=== PATIENT | female | born 1980 | race Caucasian/White ===

== ENCOUNTER 2021-09-25 15:33 | Emergency (ER) | payer MEDICAID, SELFPAY ==
[2021-09-25 15:50] VITALS: BP 159/98; PULSE 107; RESP 22; O2SAT 97; BMI 36.2
--- NOTE | 2021-09-25 15:59 | XRR_ITS ---
PROCEDURE INFORMATION: Exam: XR Left Ankle Exam date and time: 09/25/2021 4:00 PM Age: 41 years old Clinical indication: Injury or trauma; Fall; Fracture, pathological; Fibula and tibia; Right; Bilateral; Displaced; Additional info: Possible ankle fracture TECHNIQUE: Imaging protocol: XR Left ankle. Views: 3 or more views. COMPARISON: No relevant prior studies available. FINDINGS: Bones/joints: There is an oblique distal fibular fracture and medial malleolar fracture with lateral displacement and disruption of the ankle mortise resulting in slight valgus deformity. There is also probable widening of the distal tibia fibular distance and syndesmotic rupture may be present. Correlation with proximal tibia fibular exam should also be considered to exclude proximal fibular injury. Soft tissues: Normal. Other findings: Three views obtained in a cast. XR/XR ankle LT min 3V* [id number] IMPRESSION: Distal fibula and medial malleolar fracture with disruption of the ankle mortise as described. Additional views of the proximal tibia/fibula may also be considered. See discussion above.
--- NOTE | 2021-09-25 16:01 | ED_ITS ---
HPI - Extremity Problem General: Chief complaint: Extremity Injury, Lower Stated complaint: ROLLED ANKLE Time Seen by Provider: 09/25/21 16:00 Source: patient Mode of arrival: EMS Limitations: no limitations History of Present Illness: 41-year-old female presents emergency room via EMS she fell earlier today at home tripped over a toy felt a popping sensation in her right ankle. She has been able to unable to get up could not get a hold of anyone to help her eventually she called EMS and was brought to the emergency room. She denies striking her head no other injuries no loss of consciousness. MD Complaint: joint pain Onset (ago): hour(s) Pain Consistency: constant Location: right Radiation: none Relieving factors: immobilization and rest Exacerbating factors: range of motion and palpation Associated symptoms: Deny chest pain, fever(s), myalgias, rash or short of breath Review of Systems Const: Denies: fever(s) or chills ENMT: Denies: throat pain, ear or mastoid pain, nasal discharge or nasal congestion Card: Denies: chest pain, palpitations or irregular heart rhythm Resp: Denies: dyspnea, productive cough or non-productive cough GI: Denies: abdominal pain, nausea, vomiting, hematemesis, coffee ground emesis, diarrhea, constipation or bloating : Denies: flank pain, difficulty voiding, dysuria, urinary frequency or urinary urgency Skin/Breast: Denies: rash or pruritus PFS ED PFSH: Medical History (Updated 09/25/21 @ 16:11 by Bonilla Adams DO) No pertinent past medical history Surgical History (Updated 09/25/21 @ 16:10 by Bonilla Adams DO) No pertinent past surgical history Physical Exam Const: COMMON NORMALS: no acute distress GENERAL APPEARANCE: cooperative and comfortable ORIENTATION/CONSCIOUSNESS: Yes awake, Yes oriented to person, Yes oriented to place and Yes oriented to time HENMT: COMMON NORMALS: normocephalic, atraumatic and hearing grossly normal bilaterally HEAD & SCALP: normocephalic and atraumatic Neck/C-Spine: COMMON NORMALS: full ROM, no lymphadenopathy and no JVD Resp: COMMON NORMALS: normal respiratory effort, No retractions, No use of accessory muscles and clear to auscultation bilaterally AUSCULTATION: clear to auscultation bilaterally Cardio: COMMON NORMALS: no JVD, regular rate, regular rhythm and No murmurs present (Cardio) RATE: regular rate RHYTHM: regular rhythm GI: COMMON NORMALS: Soft to palpation and No hepatosplenomegaly present AUSCULTATION: Yes normoactive bowel sounds PALPATION: Yes Soft to palpation, No Tenderness to palpation present (GI), No Guarding due to palpation present (GI) and Yes No hepatosplenomegaly present Extremity: COMMON NORMALS: capillary refill normal and no calf tenderness OTHER: Right ankle is splinted. There is moderate edema and deformity consistent with fracture confirmed on x-ray Neuro: SENSORIUM/ORIENTATION: Yes oriented to person, Yes oriented to place and Yes oriented to time Skin: COMMON NORMALS: no rashes or lesions noted GENERAL SKIN EXAM: no rashes or lesions noted Procedures Orthopedic Joint Reduction Joint #1: Time Out Performed: Yes Side: right Joint Reduction Location: ankle Analgesia: procedural sedation Technique used: traction/counter-traction Post-reduction neuro exam: intact Post-reduction vascular: intact Post Reduction X-Ray Obtained: Yes Post Reduction X-Ray Results: reduced Splint Applied: Yes Additional Comments: Improvement of positioning pain is improved neurovascular intact Orthopedic Splinting/Casting Injury #1: Side: right Lower Extremity Injury Location: ankle Lower Extremity Immobilizer: posterior splint Other Orthopedic Equipment: crutches Procedural Sedation Indication: fracture/dislocation reduction Preparation: automobile mechanic apprentice applied, pulse oximeter, supplemental O2 applied, suction/airway equipment at bedside and IV secured IV Etomidate dose (mg): 10 Patient Tolerated Procedure: well Complications: none Course Vital Signs: Vital signs: Vital Signs Pulse Rate 93 09/25/21 18:18 Respiratory Rate 16 09/25/21 16:31 Blood Pressure 129/91 09/25/21 18:18 Pulse Oximetry 97 09/25/21 18:18 MDM - Extremity (Nontraumatic) Medical Decision Making Fracture reduced under sedation. Difficult time holding it in full reduction. However pain is improved neurovascularly intact afterwards. Posterior splint applied and will make arrangements for patient to follow-up with orthopedics. Medical Records I reviewed the patient's medical records. Lab Data Radiology Impressions Ankle X-Ray 09/25/21 17:07 IMPRESSION: Trimalleolar fracture with some interval improvement of tibiotalar alignment on the frontal view however there is anterior subluxation and slight rotation of the tibiotalar joint on the lateral view. Discharge Plan Discharge Patient Disposition: Home Clinical Impression: Displaced bimalleolar fracture of right ankle Condition: Stable Prescriptions: New hydrocodone-acetaminophen 5-325 mg tablet 1 tab PO Q6H PRN (Reason: pain) Qty: 20 0RF Discharge Orders: Discharge ED (Routine); Ordered 09/25/21 Ordered By: Bonilla Adams Referrals: Austyn Khan FNP [Primary Care Provider] - Discharge Diet: Usual diet Activity Restrictions/Additional Instructions: Case management will call with an appointment for follow up with orthopaedics. Coding Level of Care Code ED Supervisor Riveting for Linusg Fwd Exam Comprehensive
[2021-09-25 16:23] VITALS: RESP 16; O2SAT 95
[2021-09-25] MEDS: morphine 4 mg/mL SDV 1 mL IVP (16:23)
[2021-09-25] MEDS: ondansetron 2 mg/ML SDV 2 mL 4 MG IVP (16:24)
[2021-09-25 16:31] VITALS: BP 159/98; PULSE 92; RESP 16; O2SAT 94
--- NOTE | 2021-09-25 17:07 | XRR_ITS ---
PROCEDURE INFORMATION: Exam: XR Right Ankle Exam date and time: 09/25/2021 5:20 PM Age: 41 years old Clinical indication: Pain and injury or trauma; Fall; Fracture, traumatic; Closed fracture; Ankle; Right; Not specified; Additional info: Post reduction TECHNIQUE: Imaging protocol: XR Right ankle. Views: 1 or 2 views. COMPARISON: No relevant prior studies available. FINDINGS: Bones/joints: Comminuted distal fibular fracture and medial malleolar fracture with slight displacement. There is interval improvement of the tibiotalar alignment on the frontal view however there is mild persistent anterior subluxation and slight lower taken on the lateral view. There is slight posterior displacement and apex posterior angulation of the distal fibular fragment. The medial malleolar fragment is also slightly displaced. There is also a distal posterior tibial fracture which is slightly displaced and was not well seen on the previous exam. Soft tissues: Normal. Other findings: Two views obtained in a cast obscuring details. XR/XR ankle RT 2V [id number] IMPRESSION: Trimalleolar fracture with some interval improvement of tibiotalar alignment on the frontal view however there is anterior subluxation and slight rotation of the tibiotalar joint on the lateral view.
--- NOTE | 2021-09-25 18:10 | PC.NURSE ---
PT given 10mg Etomidate at 1658. Procedure started by Dr. Adams at 1658. Physician reduced right ankle fracture. Optiglass and jayesh wrap applied. Xray taken post procedure. PT given crutches and education. 93 pulse 129/91 BP 97% O2 by room air
[2021-09-25 18:18] VITALS: BP 129/91; PULSE 93; O2SAT 97
--- NOTE | 2021-09-28 11:13 | DCPLANNER ---
Addendum entered by Kia Ureña 09/30/21 22:21: Patient had a follow up appointment scheduled for 09.30.21 with ortho - patient did attend appointment. Original Note: bike shop manager had message to schedule a follow up appointment for patient with ortho. bike shop manager sent patients information to the front office staff at ortho. Patients information will be printed and reviewed. Clinic will call patient with appointment information.
== END 2021-09-25 18:24 | disposition home or self-care (01) ==
PROVIDERS: Emergency Provider Family Medicine; PCP Nurse Practitioner Family
DX: S82.851A Displaced trimalleolar fracture of right lower leg, initial encounter for closed fracture (principal); X58.XXXA Exposure to other specified factors, initial encounter
CPT/HCPCS: 27818; 73600; 73610; 96374; 96375; 99284; E0114; J2270; J2405; J3490

== ENCOUNTER → 2021-09-30 14:09 | Outpatient (BNVA) | payer MEDICAID, SELFPAY | PROVIDERS: PCP Nurse Practitioner Family; Visit Provider Podiatrist Foot & Ankle Surgery | DX: S82.851A Displaced trimalleolar fracture of right lower leg, initial encounter for closed fracture (principal); W22.8XXA Striking against or struck by other objects, initial encounter | CPT/HCPCS: 99204 ==

== ENCOUNTER 2021-10-02 05:49 | Day surgery (SDC) | payer MEDICAID, SELFPAY ==
[2021-10-01 16:49] VITALS: BMI 36.8
[2021-10-02] VITALS (16 sets, daily range): BP systolic 130–164; BP diastolic 59–121; PULSE 78–97; RESP 12–21; TEMP 36.5–37; O2SAT 93–99
--- NOTE | 2021-10-02 | SCC_ITS ---
Procedure done: Open reduction internal fixation right trimalleolar fracture. CPT code 28433 52 seconds of fluoroscopic guidance, for a cumulative dose of 1.0 mGy, was provided to Dr. Montesinos by the radiology department. C-arm images of the RIGHT ankle were saved for the patient's permanent record. [facility]
[2021-10-02 06:22] LABS: OR HCG Qualitative Urine Negative (Negative)
[2021-10-02] MEDS: CELEcoxib 200 mg Capsule 400 MG PO (06:32)
[2021-10-02] MEDS: gabapentin 300 mg Capsule PO (06:32)
--- NOTE | 2021-10-02 07:03 | W.PM.OPSUD ---
Surgery/Procedure H&P Update DATE OF PROCEDURE: October 02, 2021 DATE H&P PERFORMED: 09/30/21 CHANGES TO PREVIOUS DOCUMENTATION: None PREOP DIAGNOSIS: Right trimalleolar fracture PLANNED PROCEDURE: Operation Date: 10/02/21 08:30 Proposed Procedures p ORIF Right Trimallelolar Ankle 73290/s82.851a(Right) - Terrell Montesinos DPM
--- NOTE | 2021-10-02 07:04 | P.OP_ITS ---
Operative Report Date of procedure: October 02, 2021 Pre-op diagnosis: Right trimalleolar fracture Post-op diagnosis: Right trimalleolar fracture Procedure done: Open reduction internal fixation right trimalleolar fracture. CPT code 95819 Implants: [place] 28 anatomic fibular plate and [place] 28 4 mm headed screws, 2-0 Vicryl, 3-0 Vicryl, skin viviane Surgeon: Dr. Goodman Blas Cell Operation Supervisor: See intraoperative documentation Estimated blood loss: 10 63 IV fluids: None Urine output: None Complications: None Brief History: 41-year-old female presents with right trimalleolar fracture, closed with some displacement and comminution of the fibular fracture.? Fell tripping over a toy at home 09/25/2021 date of injury. Patient examined and evaluated, findings and treatment options discussed with patient at length.? X-rays taken 09/25/2021 reviewed shows right trimalleolar fracture with transverse fracture of the medial malleolus with significant displacement greater than 5 mm, Jefferson Rodriguez B fracture with comminution and displacement and posterior malleolus fracture involving approximately 20% of the tibial plafond.? On exam patient does not have any fracture blisters or open wounds.? I educated the patient on the severity of her fracture, due to gross instability recommended open reduction internal fixation with risks including but not limited to pain, bleeding, numbness, infection, hardware rotation, hardware failure, delayed union, malunion, nonunion and inherent risks associate with anesthesia, deep vein thrombosis, heart attack, stroke and .? Also hi gh likelihood of posttraumatic arthritis after this injury is anticipated.? Explained the risks of not performing surgery has a higher chance of delayed union, malunion and nonunion and a higher chance of posttraumatic arthritis and nonfunctional joint.? Patient wishes to proceed with surgical intervention.? Will be scheduled outpatient under general anesthesia 10/02/2021.? Planning on 81 mg aspirin once daily morning after surgery until ambulatory likely 6 to 8 weeks to potentially reduce the risk of deep vein thrombosis. Procedure: Under mild sedation the patient was brought to the operating room and placed on the operating table in supine position. A timeout was performed. Anesthesia was administered by the anesthesia service. Of note popliteal block to the right lower extremity administered per anesthesia service in preoperative setting. Well-padded pneumatic tourniquet applied high calf to the right lower extremity. The right lower extremity was then scrubbed, prepped and draped utilizing normal aseptic technique. Right lower extremity was exanguinated with an Esmarch bandage and the tourniquet inflated to 250 mmHg. Attention was directed to the lateral malleolus where a linear longitudinal incision was made at the right distal fibula. Dissection was carried down through subcutaneous tissue to the layer of periosteum utilizing sharp and blunt technique. Care was taken to retract and preserve neurovascular and tendinous structures. All bleeders were ligated and cauterized as necessary. Right distal fibular fracture was evacuated of hematoma, flushed and reduced followed by fixation utilizing standard AO technique with a interfrag screw perpendicular to the fracture fragment in anatomic fibular plate per [place] 28 with locking screws distally and proximally. Excellent bony apposition noted and compression noted. Screws were not violating the ankle mortise. Fibula was out to length and derotated. Incision was flushed with saline solution and closed in a layered fashion. 2-0 Vicryl periosteum. 3-0 Vicryl subcutaneous tissue and skin viviane. Attention was directed to the medial malleolus where the medial malleolus was reduced percutaneously and fixated utilizing standard AO technique this was fixated utilizing 2 screws these were [place] 28 4 mm headed partially-threaded cannulated screws with excellent bony apposition and compression and not violating the ankle mortise this was confirmed with intraoperative fluoroscopy on AP, mortise and lateral views. The posterior malleolus was reduced utilizing ligamentotaxis. Medial incisions were flushed with saline solution and closed with 4-0 nylon. The incisions were then dressed with Adaptic, sterile 4 x 4's, Kerlix, Omari wrap and cam boot was applied. Tourniquet was deflated and a prompt hyperemic response is noted to the distal digits of the right foot. Patient tolerated the procedure and anesthesia well and was transferred to the PACU with vital signs stable and vascular status intact. Following a period of postop monitoring she will be discharged home is to remain strict nonweightbearing and elevate her right foot while at rest. Will be following up next week for her first dressing change. Recommended 81 mg aspirin once daily to potentially reduce the risk of deep vein thrombosis.
[2021-10-02] MEDS: midazolam 1 mg/mL INJ 2 mL 4 MG IVP (07:30)
[2021-10-02] MEDS: sodium chloride 0.9% 1,000 ML 30 ML IV (07:35)
[2021-10-02] MEDS: diphenhydrAMINE 50 mg/mL SDV 1mL 12.5 MG IVP (07:48)
[2021-10-02] MEDS: ondansetron 2 mg/ML SDV 2 mL 4 MG IVP (07:48)
--- NOTE | 2021-10-02 08:07 | P.ANESASSM_ITS ---
Pre-Anesthetic Assessment Height/Weight: Height 1.55 m Weight 88.451 kg Temp Pulse Resp BP Pulse Ox 97.7 F 97 16 141/86 96 10/02/21 06:13 10/02/21 06:13 10/02/21 06:13 10/02/21 06:13 10/02/21 06:13 Preop Diagnosis: Right trimalleolar fracture Operation Date: 10/02/21 08:30 Proposed Procedures p ORIF Right Trimallelolar Ankle 62397/[id number](Right) - Terrell Montesinos DPM Familial anesthetic complications: None Was Beta Fernanda taken within 24 hours: N/A Was Clonidine taken within 24 hours: N/A Last intake: Intake Last Liquid Date 10/01/21 Last Liquid Time 23:59 Last Solid Date 10/01/21 Last Solid Time 21:30 Social Tobacco and No alcohol Exam alert, oriented x 3 and regular rate & rhythm Airway Submandibular: within normal limits Cervical ROM: within normal limits Mallampati: Class II Dentition: chipped Comments: Comments: Very poor dentition Pulmonary Chronic Obstructive Pulmonary Disease Metabolic Morbid Ob[place] [facility] [place] Chronic pain/opioid Anesthetic Plan ASA status: 3 Anesthesia: General and Regional (specify below) (Right pop blk) Medications/Allergies Home Medications Medication Instructions Recorded Confirmed Last Taken Type buprenorphine 12 mg-naloxone 3 mg 1 film BUCCAL BID 10/02/21 10/02/21 09/30/21 History sublingual film (Suboxone) duloxetine 30 mg capsule,delayed 30 mg PO DAILY 10/02/21 10/02/21 09/30/21 20:00 History release sprinkle gabapentin 300 mg tablet 300 mg PO TID 10/02/21 10/02/21 10/01/21 History Allergies Allergy/AdvReac Type Severity Reaction Status Date / Time prochlorperazine Allergy ADR-Irritab Verified 10/01/21 16:48 [From Compazine] le Current Medications Generic Name Dose Route Start Last Admin Trade Name Freq PRN Reason Stop Dose Admin Diphenhydramine HCl 12.5 mg 10/02/21 07:01 10/02/21 07:48 Diphenhydramine 50 Mg/Ml Sdv 1ml IVP 12.5 mg ONCE PRN Administration ANESTHESIA Sodium Chloride 1,000 mls @ 30 mls/hr 10/02/21 07:15 10/02/21 07:35 Sodium Chloride 0.9% IV 10/03/21 07:14 30 mls/hr .Q24H TRISHA Administration Ondansetron HCl 4 mg 10/02/21 07:01 10/02/21 07:48 Ondansetron 2 Mg/Ml Sdv 2 Ml IVP 4 mg Q5M PRN Administration NAUSEA AND VOMITING PFSH Anesthesia Medical History (Updated 09/30/21 @ 17:57 by Terrell Montesinos DPM) No pertinent past medical history Surgical History (Updated 09/25/21 @ 16:10 by Bonilla Adams DO) No pertinent past surgical history Data Anesthesia Cardiac Studies: No Data to Display
--- NOTE | 2021-10-02 08:08 | ANES.PROC ---
Anesthesia Procedures Procedure/Date: 10/02/21 Nerve Block ^: Nerve Block 1: Main Anesthesia: general anesthesia Time Out Performed: Yes Consent: requested by attending/covering physician, from patient, risks and benefits reviewed and patient agrees to proceed Nerve block location: popliteal (right) Anesthesia monitors applied: pulse oximetry, EKG, BP cuff and oxygen Nerve block position: supine Anesthetic Used: ropivicaine 0.5% Amount of anesthesia used (mL): 30 Ultrasound used to: recognize landmarks Nerve Stimulator Used?: No Interscalene/Femoral BLK: 4 stimuplex 21 g needle used for position and inplane approach Injection: neg aspiration of heme Patient Tolerated Procedure: well Complications: none
[2021-10-02] MEDS: lidocaine 2% INJ 20 mL INJECTION (08:48)
--- NOTE | 2021-10-02 10:01 | XR_ITS ---
WS: [id number] XR ankle RT min 3V* [id number] REASON FOR EXAM: post op FINDINGS: Plate and screw fixation of comminuted left fibular fracture. Long screw fixation of transverse medial malleolar fracture. Surgical appliances and fracture fragments are in proper position and alignment. Joint spaces of the right ankle are preserved. XR/XR ankle RT min 3V* [id number] IMPRESSION: Internal fixation of right ankle fracture without abnormality.
[2021-10-02] MEDS: fentaNYL 50 mcg/mL INJ 2mL IVP ×2 (10:11→10:15)
[2021-10-02] MEDS: HYDROmorphone 1 mg/mL INJ 1 mL 0.5 MG IVP (10:26)
[2021-10-02] MEDS: HYDROcodone-acetaminophen 10-325 mg Tablet 1 TAB PO (11:16)
--- NOTE | 2021-10-02 13:14 | ANE.PACU2 ---
Inpatient post-anesthesia follow up: Airway intact: Yes Vital signs: Temperature 97.9 F Pulse Rate 83 Respiratory Rate 18 Blood Pressure 146/59 Pulse Oximetry 94 Oxygen Delivery Me thod Room Air Oxygen Flow Rate 7 Fraction of Inspir ed Oxygen Hydration adequate: Yes Nausea and vomiting: No Pain level: 3 Mental status: Baseline
== END 2021-10-02 11:30 | disposition home or self-care (01) ==
PROVIDERS: Anesthesiology; PCP Nurse Practitioner Family; Visit Provider Podiatrist Foot & Ankle Surgery
PROC: (CPT 27822; principal; 2021-10-02 08:20)
DX: S82.851A Displaced trimalleolar fracture of right lower leg, initial encounter for closed fracture (principal); Z79.891 Long term (current) use of opiate analgesic; J44.9 Chronic obstructive pulmonary disease, unspecified; E66.01 Morbid (severe) obesity due to excess calories; Z68.36 Body mass index [BMI] 36.0-36.9, adult; G89.29 Other chronic pain; W01.0XXA Fall on same level from slipping, tripping and stumbling without subsequent striking against object, initial encounter
CPT/HCPCS: 27822; 64450; 73610; 76000; 76942; 81025; 84703; C1713; C1763; J0690; J1100; J1170; J1200; J2250; J2405; J2704; J2795; J3010; J3490; J7030

== ENCOUNTER → 2021-10-09 14:05 | Outpatient (BNVA) | payer MEDICAID, SELFPAY | PROVIDERS: PCP Nurse Practitioner Family; Visit Provider Podiatrist Foot & Ankle Surgery | DX: Z98.890 Other specified postprocedural states (principal); S82.851A Displaced trimalleolar fracture of right lower leg, initial encounter for closed fracture; X58.XXXA Exposure to other specified factors, initial encounter; R60.9 Edema, unspecified | CPT/HCPCS: 29405; 29580; 73610 ==

== ENCOUNTER → 2021-10-23 13:56 | Outpatient (BNVA) | payer MEDICAID, SELFPAY | PROVIDERS: PCP Nurse Practitioner Family; Visit Provider Podiatrist Foot & Ankle Surgery | DX: Z98.890 Other specified postprocedural states (principal) | CPT/HCPCS: 29405; 73610 ==

== ENCOUNTER → 2021-11-12 13:37 | Outpatient (BNVA) | payer MEDICAID, SELFPAY | PROVIDERS: PCP Nurse Practitioner Family; Visit Provider Podiatrist Foot & Ankle Surgery | DX: Z98.890 Other specified postprocedural states (principal) | CPT/HCPCS: 73610; 99024 ==

== ENCOUNTER 2021-11-12 16:16 | Outpatient (CLI) | payer MEDICAID, SELFPAY | END 2021-11-12 16:17 | disposition home or self-care (01) | LOC: SPT 16:17 | PROVIDERS: PCP Nurse Practitioner Family; Visit Provider Podiatrist Foot & Ankle Surgery | DX: Z46.89 Encounter for fitting and adjustment of other specified devices (principal); S82.851D Displaced trimalleolar fracture of right lower leg, subsequent encounter for closed fracture with routine healing; X58.XXXD Exposure to other specified factors, subsequent encounter | CPT/HCPCS: 97760; L4361 ==